=== PATIENT | male | born 1955 | race Caucasian/White ===

== ENCOUNTER 2019-09-25 07:00 | Outpatient (CLI) | payer MEDICAID, SELFPAY ==
--- NOTE | 2019-09-25 07:14 | CT_ITS ---
WS: [id number] CT CHEST TECHNIQUE: Noncontrast CT of the chest with coronal and sagittal reformatted images. CLINICAL INFORMATION: COPD COMPARISON: CT chest 11 5014 DLP: 905.[address] scans at [facility] use at least one of these dose optimization techniques: automat ed exposure control; mA and/or kV adjustment per patient size (includes targeted exams where dose is matched to clinical indication); or iterative reconstruction. FINDINGS: Advanced chronic emphysematous changes. No acute-appearing pulmonary infiltrates. Slight atelectasis right lung base. No consolidation or pleural fluid. Mild aortic calcification. No mediastinal or hilar lymphadenopathy. Normal endobronchial tree. Adrena l glands are normal. No axillary lymphadenopathy. Mild thoracic kyphosis with anterior hypertrophic c hanges in the mid thoracic spine. CT/CT chest wo con [id number] IMPRESSION: 1. Advanced chronic emphysematous changes similar in appearance to 2014 2. No suspicious pulmonary parenchymal opacities. 3. No acute pulmonary infiltrates. 4. No mediastinal or hilar lymphadenopathy. 5. Aortic calcification.
[2019-09-25 07:52] VITALS: O2SAT 87; O2SAT 92; O2SAT 93
== END 2019-09-25 07:01 | disposition home or self-care (01) ==
PROVIDERS: Family Provider Family Medicine; PCP Family Medicine; Visit Provider Internal Medicine Critical Care Medicine
DX: J44.9 Chronic obstructive pulmonary disease, unspecified (principal); I70.0 Atherosclerosis of aorta
CPT/HCPCS: 71250

== ENCOUNTER 2019-09-25 08:30 | Outpatient (CLI) | payer MEDICAID, SELFPAY | END 2019-09-25 08:31 | disposition home or self-care (01) | LOC: SLEEP 09-26 16:28 | PROVIDERS: Family Provider Family Medicine; PCP Family Medicine; Visit Provider Internal Medicine Critical Care Medicine | DX: J44.9 Chronic obstructive pulmonary disease, unspecified (principal) | CPT/HCPCS: 94762 ==

== ENCOUNTER 2020-01-02 10:57 | Outpatient (CLI) | payer MEDICAID, SELFPAY ==
--- NOTE | 2020-01-02 11:02 | USCV_ITS ---
Harris Snow Age: 64 Gender: M : 1955 Exam Date: 01/02/2020 11:47 Ordering Phys: Kamila Doran MD Technologist: Haim Elizabeth Exam Location: [facility] [place] Indication: SOB BP: 124 / 71 HR: 62 Rhythm: Sinus Technical Quality: Technically difficult study MEASUREMENTS (Male / Female) Normal Values 2D ECHO LV Diastolic Diameter PLAX 3.5 cm 4.2 - 5.9 / 3.9 - 5.3 cm LV Systolic Diameter PLAX 2.6 cm IVS Diastolic Thickness 1.5 cm 0.6 - 1.0 / 0.6 - 0.9 cm IVS Systolic Thickness 1.0 cm LVPW Diastolic Thickness 1.3 cm 0.6 - 1.0 / 0.6 - 0.9 cm LVPW Systolic Thickness 1.4 cm LVOT Diameter 2.0 cm LV Ejection Fraction 2D Teich 53.0 % LV Ejection Fraction MOD 2C 66.0 % LV Ejection Fraction 2C AL 66.1 % LA Diameter 3.8 cm LA Width 4.0 cm LA Height 4.3 cm RA Width 3.7 cm RA Height 3.9 cm Aorta at Sinotubular Diameter 3.2 cm M-MODE LV Diastolic Diameter MM 4.9 cm 4.2 - 5.9 / 3.9 - 5.3 cm LV Systolic Diameter MM 3.1 cm LV Ejection Fraction MM Teich 66.1 % IVS Diastolic Thickness MM 1.2 cm 0.6 - 1.0 / 0.6 - 0.9 cm IVS Systolic Thickness MM 1.6 cm LVPW Diastolic Thickness MM 1.3 cm 0.6 - 1.0 / 0.6 - 0.9 cm LVPW Systolic Thickness MM 1.9 cm RV Diastolic Diameter MM 1.7 cm Aortic Annulus Diameter 3.4 cm LA Ao Ratio MM 1.1 MV E Point Septal Separation 1.1 cm DOPPLER AV Peak Velocity 161.0 cm/s LVOT Peak Velocity 72.0 cm/s AV Area Cont Eq vti 1.4 cm squared AV Area Cont Eq pk 1.4 cm squared MV Area PHT 3.0 cm squared Mitral E to A Ratio 0.7 MV E' Velocity 7.0 cm/s Mitral E to MV E' Ratio 6.9 Mitral E to LV E' Lateral Ratio 6.6 Mitral E to LV E' Septal Ratio 7.2 TR Peak Velocity 158.0 cm/s TR Peak Gradient 10.0 mmHg TV Peak E Velocity 63.0 cm/s Right Atrial Pressure 3.0 mmHg Pulmonary Artery Systolic Pressu 13.0 mmHg PV Peak Velocity 114.0 cm/s FINDINGS Left Ventricle Normal left ventricular size and systolic function, EF 64 %. Mild left ventricular hypertrophy. No regional wall motion abnormalities. Grade I/IV diastolic dysfunction (abnormal relaxation filling pattern), normal to mildly elevated filling pressures. Right Ventricle Normal right ventricular size and systolic function. Right Atrium Normal right atrial size. Left Atrium Normal left atrial size. Mitral Valve No gross valvular abnormalities Aortic Valve Thickened aortic valve. Tricuspid Valve Not visualized well Pulmonic Valve Pulmonic valve not well visualized. Pericardium No pericardial effusion. Aorta Normal aortic annulus size. CONCLUSIONS Normal left ventricular size and systolic function, EF 64 %. Mild left ventricular hypertrophy. No regional wall motion abnormalities. Grade I/IV diastolic dysfunction (abnormal relaxation filling pattern), normal to mildly elevated filling pressures. Thickened aortic and mitral valves There is no pericardial effusion. Technically difficult study because of the poor ultrasonic window. Dr Luis Erickson MD FACC (Electronically Signed) Final Date: 02 Jan 2020 21:05 S
[2020-01-02 12:44] LABS: Alanine Aminotransferase 31 U/L (0-41); Albumin Level 4.5 g/dL (3.5-5.2); Alkaline Phosphatase 148 IU/L (40-130); Anion Gap 13.6 (5-19); Aspartate Amino Transferase 22 U/L (0-40); Blood Urea Nitrogen 15 mg/dL (8-23); Calcium 9.1 mg/dL (8.5-10.5); Carbon Dioxide 29 mmol/L (22-29); Chloride 101 mmol/L (98-107); Globulin 2.9 g/dL (1.3-4.6); Glomerular Filtration Rate 75.2 mL/min (90-130); Glucose 93 mg/dL (65-115); Osmolality Calculated 284 mOsm/kg (285-295); Potassium 4.6 mmol/L (3.5-5.1); Sodium 139 mmol/L (136-145); Total Bilirubin 0.5 mg/dL (0.15-1.2); Total Protein 7.4 g/dL (6.6-8.7)
== END 2020-01-02 10:58 | disposition home or self-care (01) ==
LOC: RAD 11:00
PROVIDERS: Family Provider Family Medicine; PCP Family Medicine; Visit Provider Internal Medicine Critical Care Medicine
DX: J44.9 Chronic obstructive pulmonary disease, unspecified (principal); R06.02 Shortness of breath; I08.0 Rheumatic disorders of both mitral and aortic valves
CPT/HCPCS: 36415; 80053; 93306

== ENCOUNTER 2020-04-01 11:44 | Outpatient (CLI) | payer MEDICAID, SELFPAY ==
[2020-04-01 12:05] LABS: ABG PCO2 41.5 mmHg (35-45); Arterial Blood Gas Hematocrit 48.9 % (42-52); Base Excess ABG 0.7 mmol/L (-2.0-2.0); Blood Gas Allen Test Pos; Blood Gas Operator Identificat MONRO; Blood Gas Sample Site Radial, left; Blood Gas Sample Type Arterial; HCO3 ABG 25.7 mmol/L (22-26); Oxygen Device ROOM AIR; PO2 ABG 60.1 mmHg (80.0-100.0)
== END 2020-04-01 11:45 | disposition home or self-care (01) ==
LOC: RT 11:48
PROVIDERS: Family Provider Family Medicine; PCP Family Medicine; Visit Provider Internal Medicine Critical Care Medicine
DX: J96.11 Chronic respiratory failure with hypoxia (principal)
CPT/HCPCS: 36600; 82803

== ENCOUNTER 2020-09-05 12:52 | Outpatient (CLI) | payer MEDICAID, SELFPAY ==
[2020-09-05 14:14] LABS: Anion Gap 10.9 (5-19); Blood Urea Nitrogen 23 mg/dL (8-23); Calcium 9.1 mg/dL (8.5-10.5); Carbon Dioxide 32 mmol/L (22-29); Chloride 102 mmol/L (98-107); Glomerular Filtration Rate 67.4 mL/min (90-130); Glucose 119 mg/dL (65-115); Magnesium 2.1 mg/dL (1.7-2.3); Osmolality Calculated 297 mOsm/kg (285-295); Potassium 3.9 mmol/L (3.5-5.1); Sodium 141 mmol/L (136-145)
== END 2020-09-05 12:53 | disposition home or self-care (01) ==
PROVIDERS: PCP Family Medicine; Visit Provider Internal Medicine Critical Care Medicine
DX: J96.11 Chronic respiratory failure with hypoxia (principal)
CPT/HCPCS: 36415; 80048; 83735

== ENCOUNTER → 2020-09-17 12:56 | Outpatient (BNVA) | payer MEDICAID, SELFPAY | PROVIDERS: Family Provider Family Medicine; PCP Family Medicine; Referring Provider Family Medicine; Visit Provider Specialist | DX: G30.9 Alzheimer's disease, unspecified (principal); F02.80 Dementia in other diseases classified elsewhere, unspecified severity, without behavioral disturbance, psychotic disturbance, mood disturbance, and anxiety; F17.210 Nicotine dependence, cigarettes, uncomplicated | CPT/HCPCS: 96116; 99204 ==

== ENCOUNTER → 2020-10-26 12:58 | Outpatient (BNVA) | payer MEDICARE, MEDICAID, SELFPAY | PROVIDERS: Family Provider Family Medicine; PCP Family Medicine; Visit Provider Internal Medicine Critical Care Medicine | DX: Z01.812 Encounter for preprocedural laboratory examination (principal); Z11.52 Encounter for screening for COVID-19 | CPT/HCPCS: 87635 ==

== ENCOUNTER 2020-10-30 09:59 | Outpatient (CLI) | payer MEDICARE, MEDICAID, SELFPAY ==
--- NOTE | 2020-10-30 10:51 | PFTS_ITS ---
Date of Study:10/30/20 Date of Dictation: MECHANICS: Forced vital capacity (FVC) is reduced. Forced expiratory volume in one second (FEV1) is reduced. FEV1/FVC is reduced. FLOW VOLUME LOOP: Reduced flow at all lung volumes with significant scooping. LUNG VOLUMES: Total lung capacity (TLC) is normal. Residual volume (RV) is increased. DIFFUSING CAPACITY FOR CARBON MONOXIDE: Severely reduced. INTERPRETATION: The postbronchodilator spirometry is consistent with severe obstructive ventilatory defect. There is no significant postbronchodilator response. Lung volumes are consistent with air trapping. Gas exchange (DLCO) is severely reduced. MTDD
== END 2020-10-30 10:00 | disposition home or self-care (01) ==
LOC: RT 10:03
PROVIDERS: PCP Family Medicine; Visit Provider Internal Medicine Critical Care Medicine
DX: J96.11 Chronic respiratory failure with hypoxia (principal)
CPT/HCPCS: 94060; 94726; 94729; J7611

== ENCOUNTER → 2020-11-04 09:58 | Outpatient (BNVA) | payer MEDICAID, SELFPAY | PROVIDERS: PCP Family Medicine; Visit Provider Surgery | DX: Z01.812 Encounter for preprocedural laboratory examination (principal); Z20.828 Contact with and (suspected) exposure to other viral communicable diseases | CPT/HCPCS: 87635 ==

== ENCOUNTER 2020-11-07 08:30 | Day surgery (SDC) | payer MEDICAID, SELFPAY ==
[2020-11-05 13:34] VITALS: BMI 29.2
--- NOTE | 2020-11-07 08:57 | ANES.PREANE2 ---
Pre-Anesthetic Assessment Pre-Anesthetic Assessment: Height/Weight: Height 1.8 m Weight 95.254 kg Proposed Procedure: Operation Date: 11/07/20 10:00 Proposed Procedures p Colonoscopy 66524 Z12.11 Z83.71(Not Applicable) - Andrei Whyte MD Was Beta Caterina taken within 24 hours: N/A Was Clonidine taken within 24 hours: N/A Social: Social History: Tobacco and No alcohol Exam: Pre-Anes Outpt Exam: alert, oriented x 3 and regular rate & rhythm Additional Exam Findings (including area of procedure): BBS decreased, rhonchi Airway: Submandibular: WNL Cervical ROM: WNL MP: 2 Dentition: False Pulmonary: Pulmonary: COPD Neuropsych: Neuropsych: Anxiety and Dementia Anesthetic Plan: ASA status: 3 Anesthesia: MAC Risk of > 500 ml blood loss (7ml/kg in children): No PFSH Anesthesia PFSH: Medical History (Updated 09/17/20 @ 14:54 by Misty Sarabia MD) COPD (chronic obstructive pulmonary disease) Post-nasal drip Surgical History Cataract extraction status of eye History of back surgery Family History Grandmother Stroke Heart murmur Family/Other Alzheimer disease Grandfather Heart murmur Diabetes Blindness Mother Diabetes Father Diabetes Brother Cancer Colon Family/Other Cancer Pancreas Social History Smoking and tobacco status: current every day smoker cigarettes Years cigarettes smoked: 53 [ Other cigarette details: Hx of 2.5PPD x 52 Years ] Alcohol intake: current Alcohol intake frequency: holidays/special occasions only Lives independently: Yes Household members: spouse Marital status: Current occupational status: retired and disabled History of recent travel: No Current gender identity: Male Data Anesthesia Cardiac Studies: No Data to Display
[2020-11-07 09:30] VITALS: BP 103/73; PULSE 57; RESP 18; TEMP 36.3; O2SAT 98
[2020-11-07] MEDS: sodium chloride 0.9% 1,000 ML 30 ML IV (09:37)
--- NOTE | 2020-11-07 10:07 | W.PM.OPSUD ---
Surgery/Procedure H&P Update DATE OF PROCEDURE: November 07, 2020 DATE H&P PERFORMED: 10/22/20 H&P UPDATE INFORMATION: No changes to prior documentation PREOP DIAGNOSIS: screening, high risk PLANNED PROCEDURE: Operation Date: 11/07/20 10:00 Proposed Procedures p Colonoscopy 35442 Z12.11 Z83.71(Not Applicable) - Andrei Whyte MD
--- NOTE | 2020-11-07 10:33 | ANE.PACU2 ---
Inpatient post-anesthesia follow up: Airway intact: Yes Vital signs: Temperature 97.3 F Pulse Rate 57 Respiratory Rate 18 Blood Pressure 103/73 Pulse Oximetry 98 Oxygen Delivery Me thod Nasal Cannula Oxygen Flow Rate 4 Fraction of Inspir ed Oxygen Hydration adequate: Yes Nausea and vomiting: No Pain level: 1 Mental status: Baseline
[2020-11-07 10:34] VITALS: BP 84/51; PULSE 53; RESP 16; TEMP 36.4; O2SAT 97
[2020-11-07 10:47] VITALS: BP 108/75; PULSE 55; RESP 16; O2SAT 97
--- NOTE | 2020-11-07 14:06 | ANE.PACU2 ---
Inpatient post-anesthesia follow up: Airway intact: Yes Vital signs: Temperature 97.5 F Pulse Rate 55 Respiratory Rate 16 Blood Pressure 108/75 Pulse Oximetry 97 Oxygen Delivery Me thod Nasal Cannula Oxygen Flow Rate 4 Fraction of Inspir ed Oxygen Hydration adequate: Yes Nausea and vomiting: No Pain level: 1 Mental status: Baseline
== END 2020-11-07 11:02 | disposition home or self-care (01) ==
PROVIDERS: PCP Family Medicine; Visit Provider Surgery
PROC: 0DJD8ZZ Inspection of Lower Intestinal Tract, Via Natural or Artificial Opening Endoscopic (ICD-10-PCS; CPT 45378; principal; 2020-11-07 10:00)
DX: Z12.11 Encounter for screening for malignant neoplasm of colon (principal); K57.30 Diverticulosis of large intestine without perforation or abscess without bleeding; K64.8 Other hemorrhoids; D12.5 Benign neoplasm of sigmoid colon; J44.9 Chronic obstructive pulmonary disease, unspecified; F41.9 Anxiety disorder, unspecified; F03.90 Unspecified dementia, unspecified severity, without behavioral disturbance, psychotic disturbance, mood disturbance, and anxiety
CPT/HCPCS: 12345; 45385; 88305; 96360; J7030

== ENCOUNTER 2020-12-18 09:46 | Outpatient (CLI) | payer MEDICARE, MEDICAID, SELFPAY ==
--- NOTE | 2020-12-18 10:00 | CT_ITS ---
WS: [id number] HIGH-RESOLUTION CT CHEST TECHNIQUE: High-resolution Noncontrast CT of the chest with coronal and sagittal reformatted images. Inspiratory, expiratory, prone imaging CLINICAL INFORMATION: Shortness of breath COMPARISON: CT September 25, 2019 June 27, 2014 DLP: 1376.[address] scans at [facility] use at least one of these dose optimization techniques: automat ed exposure control; mA and/or kV adjustment per patient size (includes targeted exams where dose is matched to clinical indication); or iterative reconstruction. FINDINGS: Advanced chronic emphysematous changes. No acute pulmonary infiltrates. No suspicious pulmonary paren chymal opacities. No focal pneumonia or pleural fluid.Mild interstitial thickening in the right lower lobe. No subpleural honeycombing. No evidence of interstitial lung disease. No air trapping on the expiratory imaging. Aortic calcification. No mediastinal or hilar lymphadenopathy. Aortic calcification. Coronary calcifi cation. No axillary lymphadenopathy. Adrenal glands are normal. Normal GE junction. Hypertrophic changes thoracic spine with thoracic scol iosis convex left. CT/CT chest wo con [id number] IMPRESSION: 1. Advanced chronic emphysematous changes. No acute pulmonary infiltrates. 2. No suspicious pulmonary parenchymal opacities. 3. Slight interstitial thickening in the right lower lobe. No evidence of subp leural honeycombing to indicate interstitial lung disease. 4. No mediastinal or hilar lymphadenopathy. 5. Mild aortic and coronary calcification.
== END 2020-12-18 09:47 | disposition home or self-care (01) ==
PROVIDERS: PCP Family Medicine; Visit Provider Internal Medicine Critical Care Medicine
DX: R06.02 Shortness of breath (principal); I70.0 Atherosclerosis of aorta; I25.10 Atherosclerotic heart disease of native coronary artery without angina pectoris
CPT/HCPCS: 71250

== ENCOUNTER 2020-12-23 06:00 | Outpatient (RCR) | payer MEDICAID, SELFPAY | END 2021-01-20 23:59 | disposition home or self-care (01) | LOC: PULRHB 06:00 | PROVIDERS: PCP Family Medicine; Visit Provider Internal Medicine Critical Care Medicine | DX: J96.11 Chronic respiratory failure with hypoxia (principal) | CPT/HCPCS: 94618; G0237; G0238; G0239 ==

== ENCOUNTER 2021-01-21 06:00 | Outpatient (RCR) | payer MEDICAID, SELFPAY | END 2021-02-19 23:59 | disposition home or self-care (01) | LOC: PULRHB 06:00 | PROVIDERS: PCP Family Medicine; Visit Provider Internal Medicine Critical Care Medicine | DX: J96.11 Chronic respiratory failure with hypoxia (principal) | CPT/HCPCS: G0237; G0238; G0239 ==

== ENCOUNTER 2021-02-20 06:00 | Outpatient (RCR) | payer MEDICAID, MEDICARE, SELFPAY | END 2021-03-22 23:59 | disposition home or self-care (01) | LOC: PULRHB 06:00 | PROVIDERS: PCP Family Medicine; Visit Provider Internal Medicine Critical Care Medicine | DX: J96.01 Acute respiratory failure with hypoxia (principal) | CPT/HCPCS: G0237; G0238; G0239 ==

== ENCOUNTER 2021-03-23 06:00 | Outpatient (RCR) | payer MEDICAID, SELFPAY | END 2021-04-22 23:59 | disposition home or self-care (01) | LOC: PULRHB 06:00 | PROVIDERS: PCP Family Medicine; Visit Provider Internal Medicine Critical Care Medicine | DX: J96.10 Chronic respiratory failure, unspecified whether with hypoxia or hypercapnia (principal) | CPT/HCPCS: G0237; G0238; G0239 ==

== ENCOUNTER 2021-04-23 06:00 | Outpatient (RCR) | payer MEDICAID, SELFPAY | END 2021-05-22 23:59 | disposition home or self-care (01) | LOC: PULRHB 06:00 | PROVIDERS: PCP Family Medicine; Visit Provider Internal Medicine Critical Care Medicine | DX: J44.9 Chronic obstructive pulmonary disease, unspecified (principal) | CPT/HCPCS: G0237; G0238; G0239 ==

== ENCOUNTER 2021-05-23 06:00 | Outpatient (RCR) | payer MEDICAID, SELFPAY | END 2021-06-22 23:59 | disposition home or self-care (01) | LOC: PULRHB 06:00 | PROVIDERS: PCP Family Medicine; Visit Provider Internal Medicine Critical Care Medicine | DX: J96.11 Chronic respiratory failure with hypoxia (principal) | CPT/HCPCS: G0237; G0238 ==

== ENCOUNTER 2021-05-28 12:01 | Outpatient (CLI) | payer MEDICAID, SELFPAY ==
[2021-05-28 13:08] LABS: Anion Gap 11.3 (5-19); Blood Urea Nitrogen 22 mg/dL (8-23); Calcium 8.6 mg/dL (8.5-10.5); Carbon Dioxide 30 mmol/L (22-29); Chloride 102 mmol/L (98-107); Glomerular Filtration Rate 84.7 mL/min (90-130); Glucose 112 mg/dL (65-115); Osmolality Calculated 292 mOsm/kg (285-295); Potassium 4.3 mmol/L (3.5-5.1); Sodium 139 mmol/L (136-145)
== END 2021-05-28 12:02 | disposition home or self-care (01) ==
LOC: RAD 12:12 → LAB 15:14
PROVIDERS: PCP Family Medicine; Visit Provider Internal Medicine Critical Care Medicine
DX: J44.9 Chronic obstructive pulmonary disease, unspecified (principal)
CPT/HCPCS: 80048

== ENCOUNTER 2021-06-17 13:11 | Outpatient (CLI) | payer MEDICAID, SELFPAY ==
--- NOTE | 2021-06-17 | CT_ITS ---
Guided Planning CT images; total exam DLP: 973.94 mGy-cm MTDD
== END 2021-06-17 13:12 | disposition home or self-care (01) ==
LOC: RAD 13:18
PROVIDERS: PCP Family Medicine; Visit Provider Internal Medicine Critical Care Medicine
DX: J44.9 Chronic obstructive pulmonary disease, unspecified (principal)
CPT/HCPCS: 71250

== ENCOUNTER 2021-07-03 14:04 | Outpatient (CLI) | payer MEDICAID, SELFPAY ==
[2021-07-03 14:57] LABS: Anion Gap 12.3 (5-19); Blood Urea Nitrogen 40 mg/dL (8-23); Carbon Dioxide 39 mmol/L (22-29); Chloride 91 mmol/L (98-107); Glucose 88 mg/dL (65-115); Osmolality Calculated 297 mOsm/kg (285-295); Potassium 3.3 mmol/L (3.5-5.1); Sodium 139 mmol/L (136-145)
[2021-07-03 14:59] LABS: Arterial Blood Gas Hematocrit 34.7 % (42-52); Blood Gas Allen Test Pos; Blood Gas Sample Site Radial, right; Blood Gas Sample Type Arterial; Carboxyhemoglobin 1.4 %THgb (0.4-20.1); HCO3 ABG 46.4 mmol/L (22-26); HGB O2 Sat 93.3 % (95-100); Ionized Calcium Level - ABG 1.1 mmol/L (1.1-1.4); Oxygen Saturation ABG 95.6; PO2 ABG 70.4 mmHg (80.0-100.0); Potassium Level - ABG 3.3 mmol/L (3.5-5.0); Total Hemoglobin 11.3 g/dL (14-18)
[2021-07-03 15:00] LABS: Oxygen Device NC
[2021-07-03 17:24] LABS: ABG PCO2 60.2 mmHg (35-45)
== END 2021-07-03 14:05 | disposition home or self-care (01) ==
PROVIDERS: PCP Family Medicine; Visit Provider Internal Medicine Critical Care Medicine
DX: J44.9 Chronic obstructive pulmonary disease, unspecified (principal)
CPT/HCPCS: 36600; 80048; 80051; 82330; 82805